=== PATIENT | female | born 1970 | race Caucasian/White ===

== ENCOUNTER → 2018-08-31 | Outpatient (CLI) | payer OTHER ==
--- NOTE | 2018-08-31 16:37 | REP ---
Right knee series: Five views. History: Pain. Findings: Five views of the right knee demonstrate patellofemoral, medial, and lateral compartment osteoarthritic spurring mild in degree. No erosive changes seen. A normal fabella is noted posterolaterally. There is a little more patellar spurring when compared with the September 17, 2014 prior study. Impression: Mild three compartment osteoarthritis. No acute bony abnormality. Electronically Signed by Jimbo Conklin MD 08/31/2018 04:53 P
== END ==
LOC: M WUC 10:05
PROVIDERS: ATTEND Physician Assistant
DX: M17.11 Unilateral primary osteoarthritis, right knee (principal)

== ENCOUNTER → 2021-01-13 | Outpatient (CLI) | payer OTHER ==
[~2021-01-13] MED LIST: GASTROGRAFIN SOLUTION 30ML (Q9963) As Ordered ONE; ISOVUE-370 76% 100ML VIAL As Ordered ONE
[2021-01-13 18:05] LABS: HEMATOCRIT 43.9 % (36.0-47.0); HEMOGLOBIN 14.6 g/dl (12.0-15.5); MEAN CORPUSCULAR HEMOGLOBIN 30.7 pg (27.0-33.0); MEAN CORPUSCULAR HGB CONC 33.3 g/dl (32.0-36.5); MEAN CORPUSCULAR VOLUME 92.2 fl (80.0-96.0); PLATELET COUNT, AUTOMATED 226 10^3/uL (150-450); RED BLOOD COUNT 4.76 10^6/uL (4.00-5.40); WHITE BLOOD COUNT 7.5 10^3/uL (4.0-10.0)
--- NOTE | 2021-01-13 18:06 | REP ---
INDICATION: ABD PAIN ABN WT LOSS-LAB FIRST. COMPARISON: None. TECHNIQUE: Standard helical technique before and after the intravenous administration of 100 cc Isovue 370. Oral bowel preparatory contrast was administered prior to the exam. FINDINGS: The lung bases are clear. The pre contrast enhanced portion examination shows a patent splenic densities to be within normal limits. Surgical clips are seen in the gallbladder fossa from previous cholecystectomy. There are no nephroliths. The contrast-enhanced portion examination shows the liver, spleen, pancreas, adrenal glands, and kidneys to be within normal limits. The abdominal aorta and para-aortic regions are within normal limits. The bowel loops and the mesenteries are within normal limits. There is no evidence of a mass or adenopathy. There is no free fluid or free air. There is a small calcified uterine fibroid on the right. Bone window technique throughout the examination shows the osseous structures to be within normal limits. IMPRESSION: CT findings are within normal limits. There is no evidence of acute disease. <Electronically signed by Janes Burnette > 01/13/21 [id number]
[2021-01-13 19:08] LABS: CA 125 6.1 U/ML (<30.2); CA19-9 TUMOR MARKER,CARBOHYDRA 8.6 U/ML (<35.0)
== END ==
LOC: M LAB 15:35
PROVIDERS: ATTEND Surgery
DX: R10.84 Generalized abdominal pain (principal); R63.4 Abnormal weight loss